=== PATIENT | male | born 1970 | race Caucasian/White ===

== ENCOUNTER 2017-05-30 05:00 | Inpatient (IN) | payer MEDICAID ==
--- NOTE | ~2017-05-30 | PN ---
Unit #: [id number] #: [id number] Patient: AN CARVER [id number] [facility] [address] [place] [address] [id number] MR#: [id number] NAME: AN CARVER. ROOM: P181 Age: 47 Sex: M Admission Date: 05/30/2017 : 1970 Attending Physician: Freedom Shafer M.D. Admitting Physician: Freedom Shafer M.D. Primary Care Physician: Primary Care Physician Doris LIRIANO PROGRESS NOTES DATE 06/01/2017 DISCUSSION The patient offers no new complaints today but continues to appear to be in significant physical distress related to opioid withdrawal. We will plan on discharge by the end of the week with follow up to take place at the auspices of community mental health resources in the [place], [place] area unless the patient does qualify for residential chemical dependence treatment. His participation within the therapeutic milieu has thus far been limited secondary to his severe symptoms of withdrawal. Dictated by... Freedom Shafer M.D. CB/isela TD: 06/01/2017 16:48 JOB #: [id number] DEANDRA PROGRESS NOTES Page 1 of 1 X Freedom Shafer MD X PROGRESS NOTE
--- NOTE | ~2017-05-30 | PA ---
Unit #: [id number] #: [id number] Patient: AN CARVER [id number] [facility] [address] [place] [address] [id number] MR#: [id number] NAME: AN CARVER. ROOM: 81 Age: 47 Sex: M Admission Date: 05/30/2017 : 1970 Date of Assessment: 05/31/2017 Attending Physician: Freedom Shafer M.D. Admitting Physician: Freedom Shafer M.D. Primary Care Physician: Primary Care Physician No PSYCHIATRIC ASSESSMENT IDENTIFYING INFORMATION The patient is a 47-year-old white male, admitted in transfer from [facility] after an overdose of approximately twenty Lopressor and Lisinopril. INFORMANT(S) Patient, reliability is fair. CHIEF COMPLAINT "Ate some pills." HISTORY OF PRESENT ILLNESS The patient is a 47-year-old white male, admitted to the [facility] unit following an ingestion of lisinopril and Lopressor. The patient reports that he had sat in his automobile in his driveway. The patient reports that he has been more depressed over the past two weeks following the recent of a friend. He continued to report positive thoughts of suicide. He continues to abuse alcohol, opiates, cocaine, Suboxone, and is, in fact, prescribed Suboxone but continues to abuse illicitly obtained heroin. The patient lives with his mother and is considered disabled secondary to his history of low back pain. The patient was last hospitalized at this facility in 2014 under similar circumstances. He reports that he used to own a home with a and children but lost his home secondary to his history of opioid abuse. PAST PSYCHIATRIC HISTORY As above. The patient has been prescribed Effexor 75 mg twice daily as well as Neurontin for chronic pain. He also claims to have been in a Suboxone program. MEDICATIONS 1. Effexor 2. Neurontin 3. Lisinopril 4. Suboxone ALLERGIES Penicillin. FAMILY HISTORY Noncontributory. Unit #: [id number] #: [id number] Patient: AN CARVER SOCIAL HISTORY The patient lives with his mother. His social history is described previously as is his substance abuse history. MENTAL STATUS EXAM At this time reveals the patient to be a well-developed, well-nourished white male, appearing his stated age. He appears to be in moderate physical distress related to opiate withdraw during his interview. He is awake, alert, and oriented in all spheres. His mood is dysphoric. His affect constricted. Speech is generally relevant and coherent. There are no gross deficits to memory or cognition noted. Intelligence is judged to be in the average range based on fund of knowledge. The patient is cooperative throughout the interview. He is currently endorsing positive suicidal ideation. He denies homicidal ideation. He denies any psychotic symptoms. Judgment and insight appear to be reasonably intact. ASSETS Motivation for change. LIABILITIES Lack of resources. DIAGNOSTIC IMPRESSION Acme I: Opioid use disorder. Dysthymic disorder. Cocaine use disorder. Alcohol use disorder. Acme II: Acme III: History of low back pain. Hypertension. TREATMENT PLAN The patient remains hospitalized for safety and stabilization, and routine detoxification protocol for opioids has been initiated and Neurontin will be discontinued given the patient's potential abuse of this medication and Suboxone will, of course, be discontinued given the patient's ongoing admitted abuse of intravenous heroin. The patient will participate in appropriate bernabe and milieu activities with estimated length of stay in the hospital of [id number] days. Suicide precautions are, of course, in place. ESTIMATED LENGTH OF STAY [id number]-[id number] days. Dictated by... Freedom Shafer M.D. BUSTER/david TD: 05/31/2017 13:40 JOB #: [id number] Unit #: [id number] #: [id number] Patient: AN CARVER PSYCHIATRIC ASSESSMENT Page 1 of 1 X Freedom Shafer MD X PSYCHIATRIC ASSESSMENT
--- NOTE | ~2017-05-30 | HP ---
Unit #: [id number] #: [id number] Patient: VISHAL CARVER [id number] [facility] [address] [place] [address] [id number] I MR#: [id number] NAME: VISHAL CARVER. ROOM: P181 Age: 47 Sex: M Admission Date: 05/30/2017 : 1970 Attending Physician: Freedom Shafer M.D. Admitting Physician: Freedom Shafer M.D. Primary Care Physician: Primary Care Physician No HISTORY AND PHYSICAL HISTORY OF PRESENT ILLNESS Vishal is a 47 year old, [facility] with depression, and after an alleged suicide attempt with an overdose of lisinopril and Lopressor. He was seen in local emergency room and when medically stable transferred to this facility for psychiatric care. PAST MEDICAL HISTORY 1. Long history of illicit substance abuse to include opioids, cocaine, and Suboxone. 2. History of alcohol abuse. PAST SURGICAL HISTORY Nothing reported. ALLERGIES Penicillin. SOCIAL HISTORY He smokes less than one half pack per day, drinks at least 40 oz of beer on a daily basis, admits to long history of illicit substance abuse to include IV opioids, amphetamines, benzodiazepines, and Suboxone. FAMILY HISTORY Medically noncontributory. REVIEW OF SYSTEMS CONSTITUTIONAL: No fever or chills. HEENT: Denies any sore throat, ear pain or runny nose. CARDIOVASCULAR: Denies chest pain, irregular heart rhythm or palpitations. CHEST: Denies shortness of breath or cough. No hemoptysis. GASTROINTESTINAL: Denies nausea, vomiting, diarrhea or chronic constipation. ENDOCRINE: Denies history of increased thirst or urination. No recent significant weight loss or gain. GENITOURINARY: Denies dysuria, frequency, or hematuria. SKIN: Denies any rashes. HEMATOLOGIC: Denies history of increased bleeding or bruising. MUSCULOSKELETAL: Denies any hot, swollen joints. No generalized muscle pain. NEUROLOGIC: Denies problems with vision or speech. No frequent, severe headaches. No numbness, tingling or weakness in any extremities. Denies loss of bladder or bowel control. Unit #: [id number] #: [id number] Patient: VISHAL CARVER CURRENT MEDICATIONS 1. Detox protocol 2. Zestril 20 mg daily PHYSICAL EXAMINATION GENERAL: Alert, well-nourished, no apparent distress. VITAL SIGNS: Blood pressure 100/62, heart rate 52, respirations 16, and temperature 98.6. WEIGHT: 190 pounds. HEIGHT: 5 feet 10 inches. SKIN: Warm and dry without rash or lesion. HEENT: Normocephalic. TMs not viewed. Oral and nasal passages clear. Conjunctivae clear. PERRLA. EOMs intact. NECK: Supple without lymphadenopathy or thyromegaly. HEART: Regular rate and rhythm without murmur. LUNGS: Clear. ABDOMEN: Soft, nontender. : Not done. EXTREMITIES: No evidence of cyanosis, clubbing or edema. Moves all without focal deficit. NEUROLOGICAL: Grossly within normal limits. Cranial Nerves: II: Visual gandhi are intact. III, IV AND : Extraocular movements are intact. Pupils are equal, round and reactive to light. V: Facial sensation is grossly normal. VII: Facial movements and expression are normal. VIII: Auditory acuity grossly intact. IX, X: Uvula is midline. Phonation is normal. XI: Patient shrugs shoulders and turns head normally. XII: Tongue protrudes in the midline. Sensory and Motor Function: Sensory and motor sensation is grossly normal. Motor: moves all extremities well. Coordination: Gait is normal. Deep Tendon Reflexes: Intact. IMPRESSION Psychiatric admission. RECOMMENDATIONS Psychiatric, per psychiatrist. MEDICAL I see no contraindications to participating in facility's activities. MEDICAL PROGNOSIS Good. MEDICAL CONDITION Stable. Dictated by... Elana Davis P.A.-C. for Derick Josue/david TD: 05/31/2017 14:52 JOB #: [id number] Unit #: [id number] #: [id number] Patient: VISHAL CARVER HISTORY AND PHYSICAL Page 1 of 1 X Elana Davis HISTORY AND PHYSICAL
--- NOTE | ~2017-05-30 | PN ---
Unit #: [id number] #: [id number] Patient: AN CARVER [id number] [facility] [address] [place] [address] [id number] MR#: [id number] NAME: AN CARVER. ROOM: P181 Age: 47 Sex: M Admission Date: 05/30/2017 : 1970 Attending Physician: Freedom Shafer M.D. Admitting Physician: Freedom Shafer M.D. Primary Care Physician: Primary Care Physician No [facility] PROGRESS NOTES DATE 06/02/2017 DISCUSSION The patient is resting comfortably. His detox continues uneventfully and we expect a.m. discharge. Dictated by... Freedom Shafer M.D. CB/isela TD: 06/02/2017 20:33 JOB #: [id number] [facility] PROGRESS NOTES Page 1 of 1 X Freedom Shafer MD X PROGRESS NOTE
--- NOTE | ~2017-05-30 | DS ---
Unit #: [id number] #: [id number] Patient: AN CARVER [id number] [facility] [address] [place] [address] [id number] MR#: [id number] NAME: AN CARVER. ROOM: P181 Age: 47 Sex: M Admission Date: 05/30/2017 : 1970 Discharge Date: 06/03/2017 Attending Physician: Freedom Shafer M.D. Primary Care Physician: Primary Care Physician No DISCHARGE SUMMARY REASON FOR ADMISSION The patient is a 47-year-old white male from [place], [place], admitted with increasing opioid dependence. HOSPITAL COURSE The patient was admitted to the [facility] unit and placed on routine detoxification protocol for opioids. He was continued on previously prescribed Effexor. His stay in the hospital was a fairly uneventful one. His detox went fairly smoothly and by 06/03/2017, the patient requested discharge with a plan to return to [place] and follow up through the auspices of community mental health resources in that area. FINAL DIAGNOSES Opioid use disorder; mood disorder, unspecified. DISPOSITION ON DISCHARGE The patient is discharged on the following medications: Effexor 75 mg b.i.d. for depression. DISCHARGE INSTRUCTIONS No dietary or physical restrictions were placed upon the patient at the time of discharge. FOLLOWUP Followup will take place through the auspices of community mental health resources in the [place], [place] area. PROGNOSIS The patient's prognosis is considered fair. Dictated by... Freedom Shafer M.D. CB/jagjitl TD: 06/05/2017 13:42 JOB #: [id number] Unit #: [id number] #: [id number] Patient: AN CARVER DISCHARGE SUMMARY Page 1 of 1 X Freedom Shafer MD X DISCHARGE SUMMARY
== END 2017-06-03 16:20 | disposition home or self-care (01) | DRG 897 ==
LOC: P1E 15:33
PROC: HZ2ZZZZ Detoxification Services for Substance Abuse Treatment (ICD-10-PCS; principal; 2017-05-30)
DX: F11.23 Opioid dependence with withdrawal (principal); F39 Unspecified mood [affective] disorder; F14.10 Cocaine abuse, uncomplicated; F34.1 Dysthymic disorder; Z88.0 Allergy status to penicillin; F10.10 Alcohol abuse, uncomplicated
CPT/HCPCS: 86592